=== PATIENT | female | born 1990 | race Caucasian/White ===

== ENCOUNTER 2017-01-25 14:06 | Emergency (ER) | payer OTHER ==
[2017-01-25 14:18] VITALS: BP 117/70; PULSE 77; RESP 16; TEMP 98.4; O2SAT 100
[2017-01-25 15:10] LABS: AUTOMATED NEUTROPHIL # 6.3 TH/MM3 (1.8-7.7); BASOPHIL # 0.1 TH/MM3 (0-0.2); BASOPHIL % 1.6 % (0.0-2.0); EOSINOPHIL # 0.1 TH/MM3 (0-0.4); EOSINOPHIL % 0.7 % (0.0-4.0); HEMATOCRIT 38.1 % (35.0-46.0); HEMO FLAGS DIFF FINAL; LYMPH % 24.6 % (9.0-44.0); LYMPHOCYTE # 2.3 TH/MM3 (1.0-4.8); MEAN CELL VOLUME 84.6 FL (80.0-100.0); MEAN CORPUSCULAR HEMOGLOBIN 28.8 PG (27.0-34.0); MEAN CORPUSCULAR HGB CONC 34.1 % (32.0-36.0); MONO % 5.8 % (0.0-8.0); NEUT % 67.3 % (16.0-70.0); PLATELET COUNT 243 TH/MM3 (150-450); RED CELL DISTRIBUTION WIDTH 11.8 % (11.6-17.2); WHITE BLOOD COUNT 9.3 TH/MM3 (4.0-11.0)
[2017-01-25 15:23] LABS: POTASSIUM 3.4 MEQ/L (3.5-5.1)
[2017-01-25 15:26] LABS: BICARBONATE 30.1 MEQ/L (21.0-32.0)
--- NOTE | 2017-01-25 15:41 | PD ---
HPI Chief Complaint: Related Problem Time Seen by Provider: 14:23 Travel History International Travel<30 days: No Contact w/Intl Traveler<30days: No Traveled to known affect area: No History of Present Illness HPI This is a 26-year-old female who is here to me speaking. History was obtained via video adhesion tester. Patient reports that one month ago she took a test which was positive. Since then she's felt like her abdomen is growing but then today she got a menstrual cycle and started to bleed, moderate severity, constant throughout the day. She denies any associated lightheadedness or dizziness. She really just wants to know she is or not. She has 1 child who is 3 years old. [facility] Past Medical History Medical History: Denies Significant Hx ?: LMP: 11/2016 Past Surgical History Surgical History: No Previous Surgery Social History Alcohol Use: No Tobacco Use: No Allergies-Medications (Allergen,Severity, Reaction): Coded Allergies: No Known Allergies (Unverified , 01/25/17) Reported Meds & Prescriptions Reported Meds & Active Scripts Active No Active Prescriptions or Reported Medications Review of Systems Except as stated in HPI: all other systems reviewed are Neg Physical Exam Narrative GENERAL:Well appearing, no acute distress SKIN: Focused skin assessment warm and dry. HEAD: Atraumatic. Normocephalic. EYES: Pupils equal and round. No injection or drainage. ENT: Moist mucous membranes NECK: Trachea midline. CARDIOVASCULAR: Regular rate and rhythm. No murmur appreciated. RESPIRATORY: Clear to auscultation. Breath sounds equal bilaterally. GASTROINTESTINAL: Abdomen soft, non-tender, nondistended. MUSCULOSKELETAL: No obvious deformities. NEUROLOGICAL: Awake and alert. No obvious cranial nerve deficits. Moving all extremities. PSYCHIATRIC: Appropriate mood and affect; insight and judgment normal. Data Data Last Documented VS Vital Signs Date Time Temp Pulse Resp B/P Pulse Ox O2 Delivery O2 Flow Rate FiO2 01/25/17 14:18 98.4 77 16 117/70 100 Orders Ed Poc Ultrasound (01/25/17 ) Complete Blood Count With Diff (01/25/17 14:49) Basic Metabolic Panel (Bmp) (01/25/17 14:49) Beta Hcg (Quant/Titer) (01/25/17 14:49) Labs Laboratory Tests Test 01/25/17 14:58 White Blood Count 9.3 TH/MM3 Red Blood Count 4.50 MIL/MM3 Hemoglobin 13.0 GM/DL Hematocrit 38.1 % Mean Corpuscular Volume 84.6 FL Mean Corpuscular Hemoglobin 28.8 PG Mean Corpuscular Hemoglobin 34.1 % Concent Red Cell Distribution Width 11.8 % Platelet Count 243 TH/MM3 Mean Platelet Volume 7.7 FL Neutrophils (%) (Auto) 67.3 % Lymphocytes (%) (Auto) 24.6 % Monocytes (%) (Auto) 5.8 % Eosinophils (%) (Auto) 0.7 % Basophils (%) (Auto) 1.6 % Neutrophils # (Auto) 6.3 TH/MM3 Lymphocytes # (Auto) 2.3 TH/MM3 Monocytes # (Auto) 0.5 TH/MM3 Eosinophils # (Auto) 0.1 TH/MM3 Basophils # (Auto) 0.1 TH/MM3 CBC Comment DIFF FINAL Differential Comment Sodium Level 143 MEQ/L Potassium Level 3.4 MEQ/L Chloride Level 107 MEQ/L Carbon Dioxide Level 30.1 MEQ/L Anion Gap 6 MEQ/L Blood Urea Nitrogen 7 MG/DL Creatinine 0.56 MG/DL Estimat Glomerular Filtration 133 ML/MIN Rate Random Glucose 92 MG/DL Calcium Level 8.4 MG/DL Human Chorionic Gonadotropin, 3 MIU/ML Quant MDM Medical Decision Making Medical Screen Exam Complete: Yes Emergency Medical Condition: Yes Interpretation(s) Afebrile, no tachycardia, normotensive No leukocytosis Potassium is 3.4 HCG is 3 Differential Diagnosis , ectopic , incomplete miscarriage, complete miscarriage Narrative Course This is a 26-year-old female who presents to the emergency department with vaginal bleeding in the setting of a recent positive test. Her hCG Quant is 3. I suspect she's had a complete miscarriage. Patient will be referred to [facility] for follow-up. Otherwise she is well-appearing and can be discharged home. Diagnosis Primary Impression: Irregular menstrual bleeding Patient Instructions: General Instructions Additional Instructions: If you develop severe abdominal pain, fever, persistent vomiting or inability to eat, heavy vaginal bleeding using more than one pad an hour, lightheadedness , dizziness, chest pain or shortness of breath return to the emergency department immediately. Followup with your medical referral coordinator as soon as possible. Take Tylenol as needed for pain. Follow up with [facility] at: Follow up with: [facility] [address] [facility] [place] [address] Office Hours Monday - 9:00 am - 5:30 pm Monday 8:00 am - 12:00 pm Teen Tuesdays 4:00 - 6:30 pm Med/Other Pt SpecificInfo: No Change to Meds Scripts No Active Prescriptions or Reported Meds Disposition: 01 DISCHARGE HOME Condition: Stable Aide Iglesias MD January 25, 2017 15:41
== END 2017-01-25 16:12 | disposition home or self-care (01) ==
LOC: PHED 14:06
DX: N92.6 Irregular menstruation, unspecified (principal)
CPT/HCPCS: 80048; 84702; 85025; 99284

== ENCOUNTER 2017-02-24 16:17 | Emergency (ER) | payer OTHER ==
[~2017-02-24] VITALS: Ht 167.6 cm; Wt 45.2 kg
[2017-02-24 16:19] VITALS: BP 120/82; PULSE 81; RESP 16; TEMP 98.7; O2SAT 100
--- NOTE | 2017-02-24 16:54 | PD ---
HPI Chief Complaint: Related Problem Time Seen by Provider: 16:27 Travel History International Travel<30 days: No Contact w/Intl Traveler<30days: No Traveled to known affect area: No History of Present Illness HPI 27-year-old female with last menstrual cycle of January 3 states that she took 2 tests last week as an outpatient that were positive. She states today she started having spotting with bleeding without associated pain. She states she's been once before. She does not know her blood type. She denies other concurrent complaints. 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 [facility] Past Medical History ?: Social History Alcohol Use: No Tobacco Use: No Substance Use: No Allergies-Medications (Allergen,Severity, Reaction): Coded Allergies: No Known Allergies (Unverified , 02/24/17) Reported Meds & Prescriptions Reported Meds & Active Scripts Active Reported Plus Iron 29-1 mg ( Vit-Iron Carbonyl) 1 Tab Tab 1 Tab PO DAILY Review of Systems Except as stated in HPI: all other systems reviewed are Neg Physical Exam Narrative GENERAL: Well-nourished, well-developed patient. Well-appearing SKIN: Warm and dry. HEAD: Normocephalic and atraumatic. EYES: No injection or drainage. ENT: No nasal drainage noted. NECK: Supple, trachea midline. CARDIOVASCULAR: Regular rate and rhythm RESPIRATORY: No increased effort. No accessory muscle use. GASTROINTESTINAL: Abdomen soft, non-tender, nondistended. NEUROLOGICAL: Awake and alert. Motor and sensory grossly within normal limits. Normal speech. Data Data Last Documented VS Vital Signs Date Time Temp Pulse Resp B/P Pulse Ox O2 Delivery O2 Flow Rate FiO2 02/24/17 17:07 76 18 114/69 100 Room Air 02/24/17 16:19 98.7 Orders Beta Hcg (Quant/Titer) (02/24/17 16:31) Complete Blood Count With Diff (02/24/17 16:31) Complete Rh (02/24/17 16:31) Iv Access Insert/Monitor (02/24/17 16:31) Ecg Monitoring (02/24/17 16:31) Ed Urine Pregnancytest Poc (02/24/17 16:31) Labs Laboratory Tests Test 02/24/17 16:45 White Blood Count 10.6 TH/MM3 Red Blood Count 4.66 MIL/MM3 Hemoglobin 13.0 GM/DL Hematocrit 39.7 % Mean Corpuscular Volume 85.2 FL Mean Corpuscular Hemoglobin 28.0 PG Mean Corpuscular Hemoglobin 32.8 % Concent Red Cell Distribution Width 11.9 % Platelet Count 272 TH/MM3 Mean Platelet Volume 7.4 FL Neutrophils (%) (Auto) 65.7 % Lymphocytes (%) (Auto) 26.2 % Monocytes (%) (Auto) 4.7 % Eosinophils (%) (Auto) 0.8 % Basophils (%) (Auto) 2.6 % Neutrophils # (Auto) 6.9 TH/MM3 Lymphocytes # (Auto) 2.8 TH/MM3 Monocytes # (Auto) 0.5 TH/MM3 Eosinophils # (Auto) 0.1 TH/MM3 Basophils # (Auto) 0.3 TH/MM3 CBC Comment DIFF FINAL Differential Comment Human Chorionic Gonadotropin, 3 MIU/ML Quant MDM Medical Decision Making Medical Screen Exam Complete: Yes Emergency Medical Condition: Yes Medical Record Reviewed: Yes (past history confirmed) Interpretation(s) [id number] test was negative Differential Diagnosis Ectopic, menses, cyst Narrative Course [id number] test is negative. Will check blood tests to rule out low Quant and reevaluate quant is 3, no pain, can follow with gynecology, all questions answered with cashier parking lot services, return instructions given Diagnosis Primary Impression: Vaginal bleeding Patient Instructions: General Instructions Additional Instructions: return as needed, follow with gynecology Med/Other Pt SpecificInfo: No Change to Meds Disposition: 01 DISCHARGE HOME Condition: Stable Effie Haas MD Feb 24, 2017 16:54 Effie Haas MD Feb 24, 2017 16:54
[2017-02-24] MEDS ORDERED: PREN29TA PO (16:58)
[2017-02-24 17:06] LABS: AUTOMATED NEUTROPHIL # 6.9 TH/MM3 (1.8-7.7); BASOPHIL # 0.3 TH/MM3 (0-0.2); BASOPHIL % 2.6 % (0.0-2.0); EOSINOPHIL # 0.1 TH/MM3 (0-0.4); EOSINOPHIL % 0.8 % (0.0-4.0); HEMATOCRIT 39.7 % (35.0-46.0); HEMO FLAGS DIFF FINAL; LYMPH % 26.2 % (9.0-44.0); LYMPHOCYTE # 2.8 TH/MM3 (1.0-4.8); MEAN CELL VOLUME 85.2 FL (80.0-100.0); MEAN CORPUSCULAR HGB CONC 32.8 % (32.0-36.0); MONO % 4.7 % (0.0-8.0); NEUT % 65.7 % (16.0-70.0); PLATELET COUNT 272 TH/MM3 (150-450); RED BLOOD COUNT 4.66 MIL/MM3 (4.00-5.30); RED CELL DISTRIBUTION WIDTH 11.9 % (11.6-17.2); WHITE BLOOD COUNT 10.6 TH/MM3 (4.0-11.0)
[2017-02-24 17:07] VITALS: BP 114/69; PULSE 76; RESP 18; O2SAT 100
[2017-02-24 17:27] LABS: BETA HCG QUANT 3 MIU/ML (0-5)
== END 2017-02-24 18:03 | disposition home or self-care (01) ==
LOC: PHED 16:17
DX: N93.9 Abnormal uterine and vaginal bleeding, unspecified (principal)
CPT/HCPCS: 84702; 84703; 85025; 86901; 99283

== ENCOUNTER 2018-05-11 00:18 | Inpatient (IN) ==
[2018-05-11] MEDS ORDERED: Naloxone Inj 0.4 MG/ML Vial IV.PUSH PRN ×2 (01:15→09:01)
[2018-05-11] MEDS ORDERED: Oxytocin 30 Units/500ml Premix 30 UNITS/500 ML BAG IV.SIG ONE (01:15)
[2018-05-11] MEDS ORDERED: Sodium Chlor 0.9% Inj 500 ML IV.SIG PRN (01:15)
[2018-05-11] MEDS ORDERED: Citric Acid/Sodium Citrate Liq 30 ML UDC PO SCH (01:15)
[2018-05-11] MEDS ORDERED: fentaNYL Citrate Inj 100 MCG/2 ML Ampul IV.PUSH PRN ×2 (01:15)
[2018-05-11] MEDS ORDERED: Sod Chloride 0.9% Inj 1,000 ML IV.CONT PRN (01:15)
[2018-05-11] MEDS ORDERED: Oxytocin 30 Units/500ml Premix 30 UNITS/500 ML BAG IV.CONT PRN (01:26)
[2018-05-11 01:40] LABS: Baso % (Auto) 0.4 % (0.0-2.0); Eos # (Auto) 0.2 th/mm3 (0.0-0.4); Eos % (Auto) 1.6 % (0.0-4.0); Hematocrit 40.5 % (35.0-46.0); Hemoglobin 13.2 gm/dL (11.6-15.3); Lymph # (Auto) 2.2 th/mm3 (1.0-4.8); Lymph % (Auto) 22.3 % (9.0-44.0); Mean Corpuscular HGB Conc 32.7 % (32.0-36.0); Mean Corpuscular Hemoglobin 27.4 pg (27.0-34.0); Mean Platelet Volume 7.8 fL (7.0-11.0); Mono # (Auto) 0.8 th/mm3 (0.0-0.9); Mono % (Auto) 7.7 % (0.0-8.0); Neut # (Auto) 6.6 th/mm3 (1.8-7.7); Platelet Count 279 th/mm3 (150-450); Red Blood Count 4.82 mil/mm3 (4.00-5.30); Red Cell Distribution Width 13.7 % (11.6-17.2); White Blood Count 9.7 th/mm3 (4.0-11.0)
--- NOTE | 2018-05-11 01:42 | ED ---
History of Present Illness Primary Care Physician: Zarina Goddard Chief Complaint: ROM History of Present Illness: 28 yo at 38 weeks gestation, has PNC with Dr Quezada, comes to [facility] c/o rupture of membranes. Weeks Gestation:: 38 Para: 1 : 2 - Inpatient Certification I certify that the inpatient services were ordered in accordance with Medicare regulations governing the order. This includes certification that hospital inpatient services are reasonable and necessary and in the case of services not specified as inpatient-only under 42 CFR 419.22(n), that they are appropriately provided as inpatient services in accordance to with the 2-midnight benchmark under 43 CFR 412.3(e) Estimated Total Length of Stay (Days): 3 Plans for Post Hospital Care: Home Review of Systems All other systems reviewed negative except as stated in HPI PMFSH - Medical / Surgical Hx Neg / Unobtainable Surgical History: No Previous Surgery - Medical History Medical History: Medical History (Last Updated 05/11/18 @ 01:33 by Martha Rose MD) Patient denies medical problems - Tobacco History Smoking Status: Never smoker Medications and Allergies Active Medications: Active Medications Citric Acid/Sodium Citrate (Sodium Citrate/Citric Acid Liq) 30 ml PO [facility] FRANKO Stop: 05/15/18 01:14 Fentanyl Citrate (Fentanyl Inj) 50 mcg IV.PUSH Q1H PRN PRN Reason: Pain Scale 3 - 5 Fentanyl Citrate (Fentanyl Inj) 100 mcg IV.PUSH Q1H PRN PRN Reason: PAIN SCALE 6 TO 10 Lactated Ringer's (Lr 1000 Ml Inj) 1,000 mls @ 125 mls/hr IV.CONT .Q8H FRANKO Sodium Chloride (Ns Inj) 500 mls @ 1,000 mls/hr IV.SIG UNSCH PRN PRN Reason: SEE LABEL COMMENTS Sodium Chloride (Ns Inj) 1,000 mls @ 100 mls/hr IV.CONT .Q10H PRN PRN Reason: SEE LABEL COMMENTS Oxytocin (Pitocin 30 Units/Ns 500 Ml Premix) 30 units in 500 mls @ 999 mls/hr IV.SIG BOLUS ONE Stop: 05/11/18 01:45 Lactated Ringer's (Lr 1000 Ml Inj) 1,000 mls @ 3,000 mls/hr IV.SIG UNSCH PRN PRN Reason: compromise or epidural Oxytocin (Pitocin 30 Units/Ns 500 Ml Premix) 30 units in 500 mls @ 2 mls/hr IV.CONT TITRATE PRN; Protocol PRN Reason: For induction of labor Stop: 05/14/18 01:25 Lidocaine HCl (Xylocaine 1% Inj) 0.1 ml I-DERMAL PRN PRN PRN Reason: For IV start Stop: 05/14/18 01:14 Lidocaine HCl (Xylocaine 1% Inj) 10 ml INFILTRATN PRN PRN PRN Reason: For episiotomy repair Stop: 05/13/18 01:14 Mineral Oil (Muri-Lube Oil) 10 ml TOPICAL PRN PRN PRN Reason: PRN perineal massage Naloxone HCl (Narcan Inj) 0.1 mg IV.PUSH Q2M PRN PRN Reason: for opiate reversal Allergies Allergy/AdvReac Type Severity Reaction Status Date / Time No Known Allergies Allergy Verified 05/11/18 00:48 Home Medications Medication Instructions Recorded Confirmed Type [id number] fumarate-FA 1 tab PO DAILY 05/11/18 05/11/18 History [] Exam Vital signs: Vital Signs 05/11/18 00:37 05/11/18 01:06 Temperature 98.0 F Pulse Rate 89 Respiratory Rate 16 16 Blood Pressure 120/72 Intake & Output 05/10/18 05/10/18 05/11/18 06:59 18:59 06:59 Weight 64.41 kg Narrative: GENERAL: Well-nourished, well-developed patient. CARDIOVASCULAR: Regular rate and rhythm without murmurs, gallops, or rubs. RESPIRATORY: Breath sounds equal bilaterally ABDOMEN/GI: Abdomen soft, non-tender Gravid GENITOURINARY: Dilatation: -1 Effacement: - Station: - Presentation: [facility] Membranes: ruptured, gross clear fluid Uterine Contractions: occasional FHT's: Category: 1 Baseline: 130 Reactive: + Variability: mod Decels: variable x 1 EXTREMITIES: No cyanosis or edema. NEUROLOGICAL: Awake and alert. Normal speech. Assessment and Plan - Plan 28 yo at 38 weeks [address] SROM. [address] Dr Quezada to advise of admission. Discharge Plan - Discharge Disposition Patient Disposition: 30 Still Patient - Physicians Team ED Provider: Martha Rose Primary Care Provider: Zarina Goddard
[2018-05-11 02:03] LABS: Bilirubin,Urine Negative (Negative); Clarity,Urine Cloudy (Clear); Color,Urine Red (Yellw/Straw); Glucose,Urine (UA) Negative (Negative); Hyaline Casts,Urine 1 /lpf (0-3); Leukocyte Esterase,Urine Negative (Negative); Mucus,Urine Few /lpf (Occasional); Nitrite,Urine Negative (Negative); Renal Epithelial Cells,Urine <1 /hpf; Specific Gravity,Urine 1.002 (1.002-1.035); Squamous Epithelial Cell,Urine 23 /hpf (0-5); Transitional Epi Cells,Urine <1 /hpf
[2018-05-11 02:09] LABS: Amphetamine Urine With Conf Neg (Neg); Benzodiazepine Urine With Conf Neg (Neg)
[2018-05-11] MEDS ORDERED: Lidocaine PF 1% Inj 30 ML Vial ONE (08:29)
[2018-05-11] MEDS ORDERED: Witch Hazel 50%/Glyderin 12.5% 40 Pad Jar RECTAL PRN (09:01)
[2018-05-11] MEDS ORDERED: Bisacodyl 10 MG Supp RECTAL PRN (09:01)
[2018-05-11] MEDS ORDERED: Benzocaine 20% Top Spray 60 ML Can TOPICAL PRN (09:01)
[2018-05-11] MEDS ORDERED: Acetaminophen 325 MG Tablet PO PRN (09:01)
--- NOTE | 2018-05-11 09:09 | P.OBDELI ---
Weeks Gestation: 38 Active Labor Start Date: 05/11/18 Medical Induction of Labor: No Artificial Rupture of Membrane: No Anesthesia: Lidocaine local to perineum Vaginal Delivery: Normal Presentation: Occiput anterior Nuchal Cord: None Delayed Cord Clamping (45 sec): Yes Placenta: Spontaneous delivery, Intact, 3 vessel cord Laceration: 2 deg Estimated blood loss (mL): 250 Infant: Female Infant Delivery Date: 05/11/18 Weight: 2.608 kg score (1 min): 9 score (5 min): 9
[2018-05-11] MEDS ORDERED: Oxytocin 30 Units/500ml Premix 30 UNITS/500 ML BAG IV.CONT SCH (10:00)
[2018-05-11] MEDS ORDERED: Measles/Mumps/Rubella Vaccine Inj 0.5 ML Vial SQ ONE (16:00)
[2018-05-11] MEDS ORDERED: Varicella Vaccine Live 1350 UNITS/0.5 ML Vial SQ ONE (16:00)
[2018-05-11] MEDS ORDERED: Diphtheria/Tetanus/Pertussis Vaccine Inj 0.5 ML Syringe IM ONE (16:00)
[2018-05-11] MEDS ORDERED: Zolpidem Tartrate 5 MG Tablet PO PRN (21:00)
[2018-05-11] MEDS: Ibuprofen 400 MG Tablet PO PRN (22:53)
[2018-05-12] MEDS: Ibuprofen 400 MG Tablet PO PRN (06:42)
[2018-05-12 08:04] VITALS: BP 114/69; PULSE 85; RESP 20; TEMP 97.8
[2018-05-12] MEDS: Senna/Docusate Sodium 8.6/50 MG Tablet PO SCH ×2 (08:07→10:50)
[2018-05-12] MEDS ORDERED: [UNRECOGNIZED DRUG - OTHER] PO SCH (09:00)
[2018-05-12] MEDS ORDERED: Prenatal Vit/Ca/Iron/Folic Acid Tablet PO SCH (09:00)
--- NOTE | 2018-05-12 11:07 | P.PNOB ---
Subjective Post day: 1 Interval history: Doing well Baby is great Bleeding is normal Pain is well controlled Objective Vital Signs/I&O: Vital Signs 05/11/18 19:49 05/12/18 08:00 Temperature 98.5 F 97.8 F Pulse Rate 80 85 Respiratory Rate 16 20 Blood Pressure 124/70 114/69 Intake & Output 05/11/18 05/12/18 05/12/18 18:59 06:59 18:59 Weight 64 kg Other: Weight On Admission 64 kg Result Diagrams: 05/11/18 01:25 Objective Remarks: GENERAL: Well-nourished, well-developed patient. CARDIOVASCULAR: Regular rate and rhythm without murmurs, gallops, or rubs. RESPIRATORY: Breath sounds equal bilaterally. No accessory muscle use. ABDOMEN/GI: Abdomen soft, non-tender. Fundus: Firm, non-tender at umbilicus. GENITOURINARY: Light to moderate bleeding. EXTREMITIES: No cyanosis or edema, non-tender, without signs of DVT. Medications and IVs: Active Medications Acetaminophen (Tylenol) 650 mg PO Q4H PRN PRN Reason: PAIN SCALE 1 TO 2 Al Hydroxide/Mg Hydroxide (Milk Of Magnesia Liq) 30 ml PO Q12H PRN PRN Reason: Mild Constipation Benzocaine (Americaine 20% Top [place]) 1 spray TOPICAL Q4H PRN PRN Reason: For Perineum Discomfort Bisacodyl (Dulcolax Supp) 10 mg RECTAL DAILY PRN PRN Reason: SEVERE CONSITIPATION Oxytocin (Pitocin 30 Units/Ns 500 Ml Premix) 30 units in 500 mls @ 2 mls/hr IV.CONT TITRATE PRN; Protocol PRN Reason: For induction of labor Stop: 05/14/18 01:25 Last Admin: 05/11/18 01:52 Dose: 2 milliunit/min, 2 mls/hr Ibuprofen (Motrin) 800 mg PO Q8H PRN PRN Reason: For cramping Last Admin: 05/12/18 06:42 Dose: 800 mg Lactulose (Lactulose Liq) 30 ml PO DAILY PRN PRN Reason: SEVERE CONSITIPATION Naloxone HCl (Narcan Inj) 0.1 mg IV.PUSH Q2M PRN PRN Reason: for opiate reversal Non-Formulary Medication ([id number] Fumarate-Fa []) 1 tab PO DAILY [facility] Last Admin: 05/12/18 08:09 Dose: Not Given Ondansetron HCl (Zofran Odt) 4 mg PO Q6H PRN PRN Reason: NAUSEA OR VOMITING Vit/Calcium/Iron/Folic Ac (Stuartnatal Plus 3) 1 tab PO DAILY [facility] Last Admin: 05/12/18 08:07 Dose: 1 tab Senna/Docusate Sodium (Ayla-Colace) 1 tab PO BID [facility] Last Admin: 05/12/18 10:50 Dose: Not Given Sennosides (Senokot) 17.2 mg PO Q12H PRN PRN Reason: Moderate Constipation Sodium Chloride (Ns Flush) 2 ml IV.FLUSH PRN PRN PRN Reason: FLUSH AFTER USING IV ACCESS Sodium Chloride (Ns Flush) 2 ml IV.FLUSH BID [facility] Last Admin: 05/12/18 10:50 Dose: Not Given Witch Alcira/Glycerin (Tucks Pads) 1 applicatio RECTAL QID PRN PRN Reason: HEMORRHOIDS Zolpidem Tartrate (Ambien) 5 mg PO HS PRN PRN Reason: SLEEP Assessment and Plan - Plan PPD #1 Doing well routine care Wants to go home today,,,her mom is here to help
== END 2018-05-12 17:05 | disposition home or self-care (01) ==
LOC: HOBED 00:18 → H2E 01:00 → H1EA 10:03
PROVIDERS: ADMIT Obstetrics & Gynecology; ATTEND Obstetrics & Gynecology